=== PATIENT | female | born 2000 | race Caucasian/White ===

== ENCOUNTER 2023-10-01 11:05 | Emergency (ER) | payer OTHER ==
[~2023-10-01] VITALS: Ht 157.5 cm; Wt 49.1 kg
[2023-10-01 11:08] VITALS: BP 112/77; PULSE 69; RESP 14; TEMP 97.8; O2SAT 99
[2023-10-01 15:53] VITALS: BP 139/70; PULSE 80; RESP 18; TEMP 98; O2SAT 97
== END 2023-10-01 15:55 | disposition home or self-care (01) ==
LOC: MED 11:05
DX: S92.321A Displaced fracture of second metatarsal bone, right foot, initial encounter for closed fracture (principal); Z88.8 Allergy status to other drugs, medicaments and biological substances; X58.XXXA Exposure to other specified factors, initial encounter; Y93.89 Activity, other specified; Y92.89 Other specified places as the place of occurrence of the external cause; Y99.8 Other external cause status
CPT/HCPCS: 73660; 81025; 99283